=== PATIENT | male | born 1955 | race Caucasian/White ===

== ENCOUNTER 2023-07-10 04:13 | Emergency (ER) | payer MEDICAID ==
[~2023-07-10] VITALS: Ht 167.6 cm; Wt 90.0 kg
[2023-07-10 04:16] VITALS: O2SAT 98
[2023-07-10] MEDS ORDERED: GUAI-450 MT (06:58)
[2023-07-10] MEDS ORDERED: P20 MT (06:58)
[2023-07-10 07:00] VITALS: BP 109/66; PULSE 68; RESP 18; TEMP 98.3
== END 2023-07-10 07:15 | disposition home or self-care (01) ==
LOC: ER 04:13
DX: J20.9 Acute bronchitis, unspecified (principal); J06.9 Acute upper respiratory infection, unspecified; J45.909 Unspecified asthma, uncomplicated
CPT/HCPCS: 71045; 99283